=== PATIENT | female | born 1950 | race Caucasian/White ===

== ENCOUNTER → 2018-04-20 | Outpatient (CLI) | payer OTHER ==
[~2018-04-20] MED LIST: REGADENOSON 0.4 MG/5 ML DISP.SYRIN. IV ONE
--- NOTE | 2018-04-20 09:58 | PCVCIMAG ---
APPROVED REPORT Study performed: 04/20/2018 07:57:51 EXAM: Comprehensive 2D, Doppler, and color-flow Echocardiogram Patient Location: Echo lab Room #: 2Status: routine BSA: 2.02 HR: 86 bpmBP: 146/86 mmHg Rhythm: NSR Other Information Study Quality: Good Risk Factors: Cardiac Risk Factors: FHX of CAD Indications Abnormal ECG Chest Pain 2D Dimensions IVSd: 9.42 (7-11mm)LVOT Diam: 19.43 (18-24mm) LVDd: 46.38 mm PWd: 9.24 (7-11mm)Ascending Ao: 34.99 (22-36mm) LVDs: 27.71 (25-40mm) Left Atrium: 36.34 (27-40mm) Aortic Root: 31.30 mm LV Single Plane 4CH: 55.01 % LV Single Plane 2CH: 64.29 % Biplane EF: 61.2 % Volumes Left Atrial Volume (Systole) Single Plane 4CH: 86.51 mLSingle Plane 2CH: 58.06 mL Biplane LA Volume: 72.00 mLLA ESV Index: 36.00 mL/m2 Aortic Valve AoV Peak Rahul.: 1.55 m/s AO Peak Gr.: 9.63 mmHgLVOT Max P.79 mmHg LVOT Max V: 0.97 m/s JORDAN Vmax: 1.86 cm2 Mitral Valve E/A Ratio: 0.7 MV Decel. Time: 192.97 ms MV E Max Rahul.: 0.77 m/s MV A Rahul.: 1.10 m/s IVRT: 89.97 ms TDI E/Lateral E': 12.83E/Medial E': 12.83 Medial E' Rahul.: 0.06 m/s Lateral E' Rahul.: 0.06 m/s Pulmonary Vein P Vein S: 0.52 m/sP Vein A: 0.33 m/s P Vein D: 0.34 m/sP Vein A Dur.: 110.7 msec P Vein S/D Ratio: 1.53 Tricuspid Valve TR Peak Rahul.: 1.91 m/s TR Peak Gr.: 14.65 mmHg TV Vmax: 0.59 m/sPA Pressure: 22.00 mmHg Left Ventricle The left ventricle is normal size. There is normal LV segmental wall motion. There is normal left ventricular wall thickness. Left ventricular systolic function is normal. The left ventricular ejection fraction is within the normal range. LVEF is 60-65%. Grade I - abnormal relaxation pattern. Right Ventricle The right ventricle is normal size. The right ventricular systolic function is normal. Atria Left atrium is mildly dilated. The right atrium size is normal. Aortic Valve Aortic valve is trileaflet. Trace aortic regurgitation. There is no aortic valvular stenosis. Mitral Valve The mitral valve is normal in structure. There is no mitral valve regurgitation noted. No evidence of mitral valve stenosis. Tricuspid Valve The tricuspid valve is normal in structure. Trace to mild tricuspid regurgitation with a PA pressure of 22 mmHg. No pulmonary hypertension. Pulmonic Valve The pulmonary valve is normal in structure. Trace pulmonic regurgitation. Great Vessels The aortic root is normal in size. The ascending aorta is borderline dilated. Aortic arch is mildly dilated. Descending aorta is normal in caliber. IVC is normal in size and collapses >50% with inspiration. Pericardium There is no pericardial effusion. There is no pleural effusion. <Conclusion> The left ventricle is normal size. LVEF is 60-65%. Left atrium is mildly dilated. Aortic valve is trileaflet. Trace aortic regurgitation. The mitral valve is normal in structure. The tricuspid valve is normal in structure. Trace to mild tricuspid regurgitation with a PA pressure of 22 mmHg. No pulmonary hypertension. The pulmonary valve is normal in structure. Trace pulmonic regurgitation. The ascending aorta is borderline dilated. Aortic arch is mildly dilated. Descending aorta is normal in caliber. There is no pericardial effusion. There is no pleural effusion.
--- NOTE | 2018-04-20 13:13 | PCVCIMAG ---
APPROVED REPORT Imaging Protocol: Rest Tc-99m/Stress Tc-99m 1 day Study performed: 04/20/2018 09:52:57 Indication: Abnormal EKG, Chest pain Patient Location: Out-Patient Stress Nurse: Vannesa Espino RN [place] Tech:Maureen Overton [facility] Ht: 5 ft 3 in Wt: 221 lbs BSA: 2.02 m2 HR: 102 bpm BP: 137/88 mmHg BMI: 39.14 Rhythm: Sinus Tachycardia Medical History Medications: Atorvastatin, Omeprozole Allergies: Sulfa, Oxycodone Cardiac Risk Factors: Age Pretest Chest Pain Characteristics: No chest pain Exercise History: Indeterminate Physical Disabilities: Knees Resting Data Rest SPECT myocardial perfusion imaging was performed in supine position 45 minutes following the intravenous injection of 14.6 mCi of Tc-99m Sestamibi. Time of rest injection: 0900 Date: 04/20/2018 Administration Route: IV Administration Site: Left Hand Pharmacologic Stress Pharmacologic stress test was performed by injecting Regadenoson 0.4 mg IV push over 10-15 seconds immediately followed by the intravenous injection of 46.2 mCi of Tc-99m Sestamibi. Time of stress injection: 1045 Date: 04/20/2018 Administration Route: IV Administration Site: Left Hand Gated Stress SPECT was performed 45 minutes after stress injection. The images were gated to evaluate regional wall motion and calculate left ventricular ejection fraction. Stress Test Details Stress Test: Pharmacologic stress was paired with low level exercise. Reason for pharmacologic stress test: physical limitation, bilateral knee replacement. HRMax Heart Rate (APMHR): 153 bpm Resting HR: 102 bpmTarget HR (85% APMHR): 130 bpm Max HR Achieved: 131 bpm % of APMHR: 85 Recovery HR: 108 bpm BP Resting BP: 137/88 mmHg Recovery BP: 139/76 mmHg ECG Resting ECG: Sinus Tachycardia Stress ECG: Sinus Tachycardia Recovery ECG: Sinus Tachycardia Clinical Reason for Termination: Completed protocol Stress Symptoms: Mild nausea Exercise duration: 4 min 00 sec Exercise capacity: 1.6 METs Symptoms resolved with caffeine. Stress ECG Conclusion 1. Adequate response to intravenous Lexiscan 2. Inadequate heart rate for ECG diagnosis Study Data Post stress, the left ventricular ejection was 61%.. SSS: 0 SRS: 3 SDS: 0 TID = 0.84. Perfusion There is a medium area of moderately reduced uptake in the mid and apical segment of the inferior wall which is seen on the stress images as well as the resting images. This area thickens and moves normally and is most consistent with attenuation artifact. Wall Motion Normal left ventricular wall motion. Nuclear Conclusion ECG Findings: non-diagnostic Clinical Findings: negative for ischemia Nuclear Findings: negative for ischemia Exercise Capacity: not assessed Left Ventricular Function: normal 1. Low risk study <Conclusion> 1. Adequate response to intravenous Lexiscan 2. Inadequate heart rate for ECG diagnosis
== END | disposition home or self-care (01) ==
LOC: PCVCIMAG 07:51
PROVIDERS: ATTEND Internal Medicine
DX: R07.9 Chest pain, unspecified (principal); R94.31 Abnormal electrocardiogram [ECG] [EKG]
CPT/HCPCS: 78452; 93017; 93306; A9500; J2785